=== PATIENT | female | born 1960 ===

== ENCOUNTER 2016-12-15 19:31 | Emergency (ER) | payer MEDICARE ==
[~2016-12-15] VITALS: Ht 167.6 cm; Wt 90.7 kg
[2016-12-15 19:37] VITALS: BP 184/117
[2016-12-15] MEDS ORDERED: KETOROLAC TROMETH 60MG/2ML VIAL IM ONE (22:30)
[2016-12-15] MEDS ORDERED: methylPREDNISolone SOD SUCC 125 MG/2 ML VL IM ONE (22:30)
== END 2016-12-15 23:20 | disposition home or self-care (01) ==
LOC: ER 19:42
DX: M25.552 Pain in left hip (principal); M54.31 Sciatica, right side; Z88.0 Allergy status to penicillin; Z88.2 Allergy status to sulfonamides; Z88.1 Allergy status to other antibiotic agents
CPT/HCPCS: 96372; 99284; J1885; J2930